=== PATIENT | female | born 2000 | race Caucasian/White ===

== ENCOUNTER 2023-02-10 16:59 | Inpatient (IN) | payer BC ==
[~2023-02-10 16:59] MED LIST: Bupivacaine 0.25%/EPINEPHrine 1:200,000 10 ML SDV EPIDUR ONE
[2023-02-10] MEDS ORDERED: Sodium Chloride 0.9% 20 ML SDV IV PRN (17:07)
[2023-02-10] MEDS ORDERED: Sodium Chloride 0.9% 10 ML Syringe FLUSH PRN (17:07)
[2023-02-10] MEDS ORDERED: Sodium Chloride 0.9% 2.5 ML Syringe FLUSH PRN (17:07)
[2023-02-10] MEDS ORDERED: Citric Acid/Sodium Citrate Solution 30 ML Cup PO ONE (17:07)
[2023-02-10] MEDS ORDERED: Oxytocin/0.9 % Sodium Chloride 30 UNIT/500 ML BAG IV SCH ×2 (17:15→20:30)
[2023-02-10] MEDS: Lactated Ringers 1,000 ML IV SCH ×2 (17:20→18:33)
[2023-02-10 17:42] LABS: HEMATOCRIT 34.5 % (36.0-46.0); HEMOGLOBIN 11.3 g/dL (12.0-16.0); MEAN CORPUSCULAR HEMOGLOBIN 27.7 pg (27.0-32.0); MEAN CORPUSCULAR HGB CONC 32.8 g/dL (31.0-37.0); MEAN CORPUSCULAR VOLUME 84.6 fL (80.0-98.0); MEAN PLATELET VOLUME 10.3 fL (7.40-12.00); RED BLOOD CELL COUNT 4.08 M/uL (4.30-5.90); WHITE BLOOD CELL COUNT,WBC 11.19 K/uL (4.0-11.0)
[2023-02-10] MEDS ORDERED: ceFAZolin 1 GM Vial ONE (18:35)
[2023-02-10] MEDS ORDERED: fentaNYL 100 MCG/2 ML SDV ONE (18:35)
[2023-02-10] MEDS ORDERED: Ropivacaine 0.5% 5 MG/ML 30 ML SDV ONE (18:35)
[2023-02-10] MEDS ORDERED: Dexamethasone 4 MG/ML 5 ML MDV ONE (18:35)
[2023-02-10] MEDS ORDERED: Oxytocin 10 Units/1 ML SDV ONE (18:35)
[2023-02-10] MEDS ORDERED: Ketorolac 30 MG/ML SDV ONE (18:35)
[2023-02-10] MEDS ORDERED: Morphine PF 10 MG/10 ML SDV ONE (18:35)
[2023-02-10] MEDS ORDERED: Ondansetron 4 MG/2 ML SDV ONE (18:35)
[2023-02-10] MEDS ORDERED: EPINEPHrine 1 MG/1 ML Amp ONE (19:20)
[2023-02-10] MEDS ORDERED: Bisacodyl 10 MG Supp RECTAL PRN (20:17)
[2023-02-10] MEDS ORDERED: Lanolin 100% Cream 7 GM Tube TOP PRN (20:17)
[2023-02-10] MEDS ORDERED: Misoprostol 200 MCG Tab RECTAL PRN (20:17)
[2023-02-10] MEDS ORDERED: diphenhydrAMINE 50 MG/ML SDV IVPUSH PRN (20:17)
[2023-02-10] MEDS ORDERED: Ondansetron 4 MG/2 ML SDV IVPUSH PRN (20:17)
[2023-02-10] MEDS ORDERED: Methylergonovine 0.2 MG/1 ML Amp IM PRN (20:17)
[2023-02-10] MEDS ORDERED: Acetaminophen/oxyCODONE 325-5 MG Tab PO PRN (20:17)
[2023-02-10] MEDS ORDERED: Oxytocin 10 Units/1 ML SDV IM PRN (20:17)
[2023-02-10] MEDS ORDERED: Lactated Ringers 1,000 ML IV SCH (20:30)
[2023-02-10 20:43] LABS: PH,UMBILICAL ARTERIAL 7.287 (7.18-7.38); PH,UMBILICAL VENOUS 7.363 (7.25-7.45)
[2023-02-11] MEDS ORDERED: Ketorolac 30 MG/ML SDV IVPUSH SCH (00:30)
[2023-02-11] MEDS: Ketorolac 30 MG/ML SDV IVPUSH SCH ×4 (01:29→19:47)
[2023-02-11] MEDS: Docusate Sodium 100 MG Cap PO SCH ×3 (04:21→19:49)
[2023-02-11 06:04] LABS: HEMATOCRIT 30.2 % (36.0-46.0); HEMOGLOBIN 9.7 g/dL (12.0-16.0)
[2023-02-11] MEDS ORDERED: Multivitamins with Iron/Calcium/Folic Acid/Minerals Tab PO SCH (09:00)
[2023-02-11] MEDS: Prenatal Multivitamin with Calcium/Folic Acid/Iron Tab PO SCH (09:24)
[2023-02-12] MEDS ORDERED: Ibuprofen 800 MG Tab PO PRN (00:30)
[2023-02-12] MEDS: Acetaminophen/oxyCODONE 325-5 MG Tab PO PRN ×2 (03:56→09:54)
[2023-02-12] MEDS: Prenatal Multivitamin with Calcium/Folic Acid/Iron Tab PO SCH (08:25)
[2023-02-12] MEDS: Docusate Sodium 100 MG Cap PO SCH (08:25)
[2023-02-12] MEDS ORDERED: Measles, Mumps & Rubella Vaccine 0.5 ML SDV SUBCUT ONE (10:40)
== END 2023-02-12 13:00 | disposition home or self-care (01) | DRG 540 ==
LOC: MW.OBCHECK 16:59 → MW.OB 16:59 → MW.OBCHECK 17:00 → MW.OB 17:00 → OBSVTOIN 17:08 → MW.OB 02-11 07:56
PROVIDERS: ADMIT Obstetrics & Gynecology; ATTEND Obstetrics & Gynecology
PROC: 3E033VJ Introduction of Other Hormone into Peripheral Vein, Percutaneous Approach (ICD-10-PCS; principal; 2023-02-10)
PROC: 10D00Z1 Extraction of Products of Conception, Low, Open Approach (ICD-10-PCS; 2023-02-10)
PROC: 0T9B70Z Drainage of Bladder with Drainage Device, Via Natural or Artificial Opening (ICD-10-PCS; 2023-02-10)
DX: O32.1XX1 Maternal care for breech presentation, fetus 1 (principal); O24.410 Gestational diabetes mellitus in pregnancy, diet controlled; O14.03 Mild to moderate pre-eclampsia, third trimester; O99.213 Obesity complicating pregnancy, third trimester; Z3A.38 38 weeks gestation of pregnancy; Z37.0 Single live birth
CPT/HCPCS: 36415; 59025; 82803; 85014; 85018; 85027; 86592; 86850; 86900; 86901; 90471; 90707; A9270-GY; J0171; J0690; J1100; J1200; J1885; J2274; J2405; J2590; J2795; J3010; J3490; J7120

== ENCOUNTER 2024-04-25 02:38 | Emergency (ER) | payer BC ==
[2024-04-25 03:51] LABS: APPEARANCE,URINE SLT CLOUDY; COLOR,URINE YELLOW; GLUCOSE,URINE NEGATIVE (NEGATIVE); KETONES,URINE TRACE mg/dL (NEGATIVE); LEUKOCYTE ESTERASE,URINE NEGATIVE (NEGATIVE); NITRITE,URINE NEGATIVE (NEGATIVE); OCCULT BLOOD,URINE NEGATIVE (NEGATIVE); PROTEIN,URINE TRACE mg/dL (NEGATIVE); UROBILINOGEN,URINE 0.2 EU/dL (<2.0)
[2024-04-25 03:58] LABS: BILIRUBIN,URINE SMALL (NEGATIVE); RBC,URINE NONE SEEN (0-2/HPF); WBC,URINE 0-2 (0-5/HPF)
[2024-04-25 03:59] LABS: BACTERIA,URINE FEW (NEGATIVE); CALCIUM OXALATE CRYSTALS,URINE FEW (NEGATIVE); EPITHELIAL CELLS,URINE FEW (NONE-FEW); MUCUS,URINE MODERATE (NONE-MOD)
[2024-04-25] MEDS: Cyclobenzaprine 10 MG Tab PO ONE (04:47)
[2024-04-25] MEDS: Dexamethasone 4 MG Tab PO ONE (04:49)
[2024-04-25] MEDS: Acetaminophen 500 MG Tab PO ONE (04:49)
[2024-04-25] MEDS: Lidocaine 4% 1 each Patch TOP ONE (04:50)
== END 2024-04-25 04:56 | disposition home or self-care (01) ==
LOC: MW.ED 02:38
DX: S29.012A Strain of muscle and tendon of back wall of thorax, initial encounter (principal); Z86.16 Personal history of COVID-19; Z88.0 Allergy status to penicillin; X50.9XXA Other and unspecified overexertion or strenuous movements or postures, initial encounter
CPT/HCPCS: 81001; 81025; 99283; A9270; J8540

== ENCOUNTER 2025-01-15 06:28 | Day surgery (SDC) | payer BC ==
[~2025-01-15 06:28] MED LIST changes: -Bupivacaine 0.25%/EPINEPHrine 1:200,000 10 ML SDV EPIDUR ONE; +Sodium Chloride 0.9% 10 ML Syringe FLUSH PRN; +Sodium Chloride 0.9% 2.5 ML Syringe FLUSH PRN; +ceFAZolin 2 GM in Water For Injection, Sterile 20 ML IVPUSH ONE
[2025-01-15] MEDS: Scopalamine 1mg/3day Transdermal Patch TOP ONE (06:58)
[2025-01-15] MEDS ORDERED: Naloxone 0.4 MG/ML SDV IVPUSH PRN (07:01)
[2025-01-15] MEDS ORDERED: fentaNYL 50 MCG/ML SDV IVPUSH PRN (07:01)
[2025-01-15] MEDS ORDERED: Albuterol 0.083% 2.5 MG/3 ML Neb Soln NEB PRN (07:01)
[2025-01-15] MEDS ORDERED: Ondansetron 4 MG/2 ML SDV IVPUSH PRN (07:01)
[2025-01-15] MEDS: Lactated Ringers 1,000 ML IV SCH (07:05)
[2025-01-15] MEDS ORDERED: propofoL 500 MG/50 ML 50 ML ONE (07:35)
[2025-01-15] MEDS ORDERED: Propofol 200 MG/20 ML SDV ONE (07:36)
[2025-01-15] MEDS ORDERED: dexmedeTOMIDine HCl 200 MCG/2 ML SDV ONE (07:38)
[2025-01-15] MEDS ORDERED: Ropivacaine 0.5% 5 MG/ML 30 ML SDV ONE (07:40)
[2025-01-15] MEDS ORDERED: Indocyanine Green 25 MG SDV ONE (08:06)
[2025-01-15] MEDS ORDERED: Dexamethasone 4 MG/ML 5 ML MDV ONE (08:19)
[2025-01-15] MEDS ORDERED: Ondansetron 4 MG/2 ML SDV ONE (08:19)
[2025-01-15] MEDS ORDERED: Magnesium Sulfate (4.06 MEQ/ML) 5 GM/10 ML SDV ONE (08:21)
[2025-01-15] MEDS ORDERED: Ketorolac 30 MG/ML SDV ONE (08:53)
== END 2025-01-15 10:45 | disposition home or self-care (01) ==
LOC: MW.SDS 06:28
PROVIDERS: ATTEND Surgery
DX: K80.20 Calculus of gallbladder without cholecystitis without obstruction (principal); Z98.84 Bariatric surgery status; Z88.0 Allergy status to penicillin
CPT/HCPCS: 47562; 81025; A9270; J0665; J0690; J1100; J1171; J1885; J2405; J2704; J2795; J3475; J7120; 00790; 64488; J3490